=== PATIENT | female | born 1990 | race African-American/Black ===

== ENCOUNTER 2018-02-05 23:53 | Inpatient (IN) | payer OTHER ==
[~2018-02-05] VITALS: Ht 165.1 cm; Wt 72.6 kg
[2018-02-06] MEDS ORDERED: LANOLIN OINT 0.25 GM TUBE TOP PRN (03:00)
[2018-02-06] MEDS ORDERED: BENZOCAINE/LANOLIN/ALOE VERA SPRAY TOP PRN (03:00)
[2018-02-06] MEDS ORDERED: IBUPROFEN 400MG TABLET PO PRN (03:00)
[2018-02-06] MEDS ORDERED: IBUPROFEN 800MG TABLET PO PRN (03:00)
[2018-02-06] MEDS ORDERED: METHYLERGONOVINE MALEATE 0.2 MG/ML IM PRN (03:00)
[2018-02-06] MEDS ORDERED: RHO(D) IMMUNE GLOBULIN 300 MCG/SYR IM PRN (03:00)
[2018-02-06 03:30] VITALS: BP 117/72
[2018-02-06 04:00] VITALS: BP 113/71
[2018-02-06 05:19] LABS: HEMATOCRIT. 28.6 % (36.0-48.0); HEMOGLOBIN. 9.2 g/dL (12.0-16.0); MEAN CORPUSCULAR HEMOGLOBIN 26.8 pg (28.0-32.0); MEAN CORPUSCULAR VOLUME 83.1 fL (81.0-99.0); MEAN PLATELET VOLUME 9.4 fl (7.4-10.4); PLATELET 226 x1000/uL (130-400); RED BLOOD CELL COUNT 3.44 mill/uL (4.2-5.4); RED CELL DISTRIBUTION WIDTH 19.7 % (11.6-14.6)
[2018-02-06 05:28] LABS: INR 1.1; PARTIAL THROMBOPLASTIN TIME 25.6 sec (23.4-31.0); PROTHROMBIN TIME 10.7 sec (9.1-11.1)
[2018-02-06 06:41] LABS: PLATELET ESTIMATE NORMAL
[2018-02-06 07:22] LABS: HEPATITIS B SURFACE ANTIGEN NEGATIVE
[2018-02-06 08:00] VITALS: BP 108/58
[2018-02-06] MEDS ORDERED: PRENATAL VIT/FE FUMARATE/FA TABLET PO SCH (09:00)
[2018-02-07] MEDS ORDERED: FERROUS SULFATE 325MG TABLET PO SCH (07:30)
== END 2018-02-06 17:33 | disposition left against medical advice (07) | DRG 951 ==
LOC: OBSVTOIN 23:53 → 8 EST LDRP 23:53 → 8EST NSY 02-06 03:03 → 8EST 02-06 15:33
PROVIDERS: ADMIT Obstetrics & Gynecology; ATTEND Obstetrics & Gynecology
DX: Z39.2 Encounter for routine postpartum follow-up (principal); Z53.21 Procedure and treatment not carried out due to patient leaving prior to being seen by health care provider
CPT/HCPCS: 36415; 86592; 86703; 86762; 86850; 86900; 87340; 99281